=== PATIENT | female | born 1990 | race Caucasian/White ===

== ENCOUNTER 2017-02-08 14:38 | Emergency (ER) | payer MEDICAID ==
[~2017-02-08] VITALS: Ht 172.7 cm; Wt 177.4 kg
[2017-02-08] MEDS ORDERED: DIAZEPAM 5 MG TABLET ONE (15:14)
[2017-02-08] MEDS ORDERED: OXYcodone/APAP 5/325MG TABLET ONE (15:15)
[2017-02-08] MEDS ORDERED: OXYcodone/APAP 5/325MG TABLET PO ONE (15:30)
[2017-02-08] MEDS ORDERED: DIAZEPAM 5 MG TABLET PO ONE (15:30)
[2017-02-08 18:11] VITALS: BP 146/83
== END 2017-02-08 18:21 | disposition home or self-care (01) ==
LOC: ED 16:12
DX: S16.1XXA Strain of muscle, fascia and tendon at neck level, initial encounter (principal); S39.012A Strain of muscle, fascia and tendon of lower back, initial encounter; V89.2XXA Person injured in unspecified motor-vehicle accident, traffic, initial encounter; Y93.89 Activity, other specified; Y92.410 Unspecified street and highway as the place of occurrence of the external cause; Y99.9 Unspecified external cause status
CPT/HCPCS: 72020; 72072; 72110; 72125; 99284

== ENCOUNTER 2017-03-06 10:46 | Emergency (ER) | payer MEDICAID ==
[~2017-03-06] VITALS: Ht 172.7 cm; Wt 176.4 kg
[2017-03-06 11:51] LABS: BLOOD UREA NITROGEN 11 mg/dL (7-18)
[2017-03-06 12:37] VITALS: BP 148/91
== END 2017-03-06 12:49 | disposition home or self-care (01) ==
LOC: ED 12:40
DX: J05.10 Acute epiglottitis without obstruction (principal); H66.92 Otitis media, unspecified, left ear; J20.8 Acute bronchitis due to other specified organisms
CPT/HCPCS: 36415; 80048; 82040; 85025; 93005; 99285

== ENCOUNTER 2017-07-01 15:36 | Emergency (ER) | payer MEDICAID ==
[~2017-07-01] VITALS: Ht 172.7 cm; Wt 166.0 kg
[2017-07-01] MEDS ORDERED: KETOROLAC 30 MG/1 ML ONE (16:28)
[2017-07-01] MEDS ORDERED: ALBUTEROL/IPRATROPIUM 2.5MG/0.5MG, 3 ML NPPB ONE (16:30)
[2017-07-01] MEDS ORDERED: KETOROLAC 30 MG/1 ML IM ONE (16:30)
[2017-07-01 16:58] LABS: RAPID INFLUENZA A Negative (Negative); RAPID INFLUENZA B Negative (Negative)
[2017-07-01] MEDS ORDERED: ALBUTEROL/IPRATROPIUM 2.5MG/0.5MG, 3 ML ONE (17:31)
[2017-07-01 17:59] VITALS: BP 119/83
== END 2017-07-01 18:00 | disposition home or self-care (01) ==
LOC: ED 17:15
DX: J06.9 Acute upper respiratory infection, unspecified (principal); J20.9 Acute bronchitis, unspecified; E11.9 Type 2 diabetes mellitus without complications
CPT/HCPCS: 71010; 87400; 94640; 96372; 99285; J1885; J7620

== ENCOUNTER 2017-07-04 15:44 | Emergency (ER) | payer MEDICAID ==
[~2017-07-04] VITALS: Ht 172.7 cm; Wt 165.2 kg
[2017-07-04] MEDS ORDERED: LIDOCAINE 1%, 20ML ONE (16:16)
[2017-07-04] MEDS ORDERED: LIDOCAINE 1%, 20ML INFIL ONE (16:30)
[2017-07-04] MEDS ORDERED: OXYcodone/APAP 5/325MG TABLET PO ONE (17:00)
[2017-07-04] MEDS ORDERED: DIAZEPAM 5 MG TABLET ONE (17:23)
[2017-07-04] MEDS ORDERED: OXYcodone/APAP 5/325MG TABLET ONE (17:23)
[2017-07-04] MEDS ORDERED: DIAZEPAM 5 MG TABLET PO ONE (17:30)
[2017-07-04 19:12] VITALS: BP 151/92
== END 2017-07-04 19:14 | disposition home or self-care (01) ==
LOC: ED 17:46
DX: N76.4 Abscess of vulva (principal); E11.9 Type 2 diabetes mellitus without complications; Z87.891 Personal history of nicotine dependence
CPT/HCPCS: 56405; 99284; J3490

== ENCOUNTER 2017-09-15 04:39 | Emergency (ER) | payer MEDICAID ==
[~2017-09-15] VITALS: Ht 172.7 cm; Wt 163.0 kg
[2017-09-15 04:43] VITALS: BP 160/99
[2017-09-15] MEDS ORDERED: BUPR150T73 PO (04:53)
[2017-09-15] MEDS ORDERED: TOPI50TA8 PO (04:53)
[2017-09-15] MEDS ORDERED: ALPR1TAB6 PO (04:53)
== END 2017-09-15 06:12 | disposition home or self-care (01) ==
LOC: ED 06:02
DX: F32.9 Major depressive disorder, single episode, unspecified (principal); Z76.0 Encounter for issue of repeat prescription
CPT/HCPCS: 99284

== ENCOUNTER 2018-02-28 17:51 | Emergency (ER) | payer MEDICAID ==
[~2018-02-28] VITALS: Ht 172.7 cm; Wt 175.8 kg
[~2018-02-28 17:51] MED LIST: ALPR1TAB6 PO; BUPR150T73 PO; TOPI50TA8 PO
[2018-02-28 18:06] VITALS: BP 157/88
[2018-02-28] MEDS ORDERED: DEXAMETHASONE 4 MG TABLET ONE ×2 (18:22→19:05)
[2018-02-28] MEDS ORDERED: ACETAMINOPHEN 500 MG TABLET ONE ×2 (18:22→19:05)
[2018-02-28] MEDS ORDERED: ACETAMINOPHEN 500 MG TABLET PO ONE (18:30)
[2018-02-28] MEDS ORDERED: PLEASE ENTER HEIGHT AND WEIGHT MC SCH (18:30)
[2018-02-28] MEDS ORDERED: DEXAMETHASONE 4 MG TABLET PO ONE (18:30)
[2018-02-28] MEDS ORDERED: BICILLIN-LA 1,200,000 UNITS/2 ML IM ONE (19:30)
== END 2018-02-28 19:59 | disposition home or self-care (01) ==
LOC: ED 19:44
DX: J02.0 Streptococcal pharyngitis (principal); E11.9 Type 2 diabetes mellitus without complications; F17.200 Nicotine dependence, unspecified, uncomplicated
CPT/HCPCS: 87880; 96372; 99283; J0561